=== PATIENT | male | born 1950 ===

== ENCOUNTER 2019-05-19 06:03 | Outpatient (CLI) | payer MEDICARE | END 2019-05-19 06:04 | disposition short-term general hospital (02) | LOC: EMS 06:03 | PROVIDERS: ATTEND Surgery | DX: T69.9XXA Effect of reduced temperature, unspecified, initial encounter (principal); V92.09XA Drowning and submersion due to fall off unspecified watercraft, initial encounter; Y92.832 Beach as the place of occurrence of the external cause | CPT/HCPCS: A0425; A0427 ==